=== PATIENT | female | born 1955 | race Caucasian/White ===

== ENCOUNTER 2023-10-16 06:15 | Day surgery (SDC) | payer MEDICARE, SELFPAY ==
[2023-10-16 07:10] VITALS: BMI 25.4
[2023-10-16 07:16] VITALS: BMI 25.4
[2023-10-16 07:18] VITALS: BP 108/75
[2023-10-16 09:10] VITALS: BP 106/89
[2023-10-16 09:16] VITALS: BP 106/89
[2023-10-16 09:30] VITALS: BP 103/72
[2023-10-16 09:45] VITALS: BP 104/78
== END 2023-10-16 10:15 | disposition home or self-care (01) ==
LOC: GI 06:15
PROVIDERS: ATTENDING PHYSICIAN Internal Medicine Gastroenterology; FAMILY PHYSICIAN Nurse Practitioner
DX: D12.2 Benign neoplasm of ascending colon (principal); K64.0 First degree hemorrhoids
CPT/HCPCS: 45390; 45385; 88305